=== PATIENT | male | born 1970 | race Caucasian/White ===

== ENCOUNTER 2024-08-08 08:57 | Emergency (ER) | payer OTHER, SELFPAY ==
[2024-08-08 09:09] VITALS: BP 156/80; PULSE 63; RESP 18; TEMP 36.8; O2SAT 98; BMI 25.1
--- NOTE | 2024-08-08 10:04 | XR_ITS ---
WS: [id number] Exam: XR finger LT min 2V 93832 Date/Time of Exam: 08/08/2024 10:06 AM Reason For Exam: injury index finger The index finger is targeted for radiographic evaluation. No acute fracture noted. Soft tissue injury involving the volar aspect of the distal index finger. No radiopaque foreign bodies are seen. Marked degenerative change at the wrist involving the articulati on of the scaphoid and greater and lesser multangular. XR/XR finger LT min 2V [id number] IMPRESSION: 1. Soft tissue injury to the distal index finger but no fracture or foreign bod y noted.
--- NOTE | 2024-08-08 10:33 | W.ED.UPPEXIN ---
HPI - Extremity Injury (Upper) General: Chief Complaint: Wound/Laceration Stated Complaint: Injured left index finger Time Seen by Provider: 08/08/24 09:31 Source: patient Mode of arrival: ambulatory Limitations: no limitations History of Present Illness: Patient is a nice 54-year-old male presents to ED today with a complaint of an injury to his left index finger that he sustained several hours ago after accidentally smashing it underneath a box. Last tetanus is up-to-date. He has no other injuries or complaints at this time. complaint: injury to: left and finger Onset (ago): hour(s) Other Extremity Injury: Left: fingers Other injuries: none Severity: mild Relieving factors: none Exacerbating factors: none Context: laceration and crush Associated symptoms: Reports no associated symptoms; Denies weakness in extremities Treatments prior to arrival: bandage Related Data Home Medications Medication Instructions Recorded Confirmed No Known Home Medications 08/08/24 08/08/24 Allergies Allergy/AdvReac Type Severity Reaction Status Date / Time No Known Allergies Allergy Verified 08/08/24 09:15 Review of Systems Musc: Reports: extremity pain (L index finger) Skin/Breast: Reports: other (laceration L index finger) Neuro: Denies: numbness in extremities, weakness in extremities or sensory changes Physical Exam Const: COMMON NORMALS: no acute distress, average body habitus, no limitations, healthy appearing, alert and well nourished Extremity: COMMON NORMALS: full ROM and capillary refill normal GENERAL: Yes normal exam except as noted LEFT UPPER EXTREMITY: Yes hand & digits (laceration palmar pad L index finger) Left hand and digits: Yes neurovascular exam (normal) Neuro: COMMON NORMALS: moves all extremities, no focal motor deficits and no sensory deficits noted SENSORIUM/ORIENTATION: Yes alert Skin: TRAUMA: laceration Procedures Laceration Laceration 1: Site: hand (L index finger) Side (If applicable): left Size (cm): 1.5 Description: irregular Depth: simple, single layer Local Anesthetic: lidocaine 1% (digital block) Amount of anesthesia used (mL): 3.0 Pre-repair: wound explored and irrigated extensively Skin layer closed with: nylon Size (cm): 5-0 Number of sutures: 6 Technique: simple, interrupted Course Vital Signs: Vital signs: Vital Signs Temperature 98.2 F 11/19/24 09:09 Pulse Rate 63 08/08/24 09:09 Respiratory Rate 18 08/08/24 09:09 Blood Pressure 156/80 08/08/24 09:09 Pulse Oximetry 98 08/08/24 09:09 Oxygen Delivery Me thod Room Air 08/08/24 09:09 MDM - Extremity Injury (Upper) Medical Decision Making XR negative for fracture. Wound was copiously irrigated and repaired as documented. Wound care/infection precautions discussed. Medical Records I reviewed the patient's medical records. Lab Data Radiology Impressions Finger X-Ray 08/08/24 10:04 IMPRESSION: 1. Soft tissue injury to the distal index finger but no fracture or foreign body noted. All radiology interpretation(s) finalized by discharge Discharge Plan Discharge Patient Disposition: Home Clinical Impression: Laceration of left index finger Qualifiers: Encounter type: initial encounter Damage to nail status: without damage Foreign body presence: without foreign body Qualified Code(s): S61.211A - Laceration without foreign body of left index finger without damage to nail, initial encounter Condition: Stable Prescriptions: No Action No Known Home Medications Discharge Orders: Discharge ED (Routine); Ordered 08/08/24 Ordered By: Leslie Lay Referrals: Vera Lau MD [Primary Care Provider] - Patient Instructions: Laceration (DC), Finger Laceration (ED) Activity Restrictions/Additional Instructions: Keep wound/laceration clean with warm soap and water twice daily. Monitor for signs of infection such as redness, swelling, increased pain, or drainage. Please seek medical re-evaluation if these occur. If you received sutures today these will need to be removed (unless you were told by the provider that they are absorbable). The provider should have discussed with you the length of time until removal-7 DAYS. Coding Level of Care Code ED Medical Record Consultant for Nandini Cervantes
[2024-08-08 11:50] VITALS: BP 146/101; PULSE 56; O2SAT 96
== END 2024-08-08 11:52 | disposition home or self-care (01) ==
PROVIDERS: Emergency Provider Physician Assistant; PCP Family Medicine
DX: S61.211A Laceration without foreign body of left index finger without damage to nail, initial encounter (principal); W23.0XXA Caught, crushed, jammed, or pinched between moving objects, initial encounter
CPT/HCPCS: 12001; 73140; 99283

== ENCOUNTER 2024-11-26 13:57 | Emergency (ER) | payer OTHER, SELFPAY ==
[2024-11-26 14:06] VITALS: BP 154/98; PULSE 78; RESP 16; TEMP 36.7; O2SAT 97; BMI 25.5
--- NOTE | 2024-11-26 15:04 | ED_ITS ---
HPI - Eye Problem General: Chief complaint: Eye Problems Stated complaint: injury to lft eye Time Seen by Provider: 11/26/24 14:24 History of Present Illness: This patient is a 54-year-old white male who accidentally struck his left eye with a branch while he was doing some yard work about 3 hours prior to arrival. He states it poked him in the left eye left upper corner. No visual changes. He feels like there might be a foreign body underneath the lid. Related Data Previous Rx's ?Medication ?Instructions ?Recorded tobramycin 0.3 % eye drops 1 drp ophthalmic (eye) Q4H #5 mL 11/26/24 Allergies Allergy/AdvReac Type Severity Reaction Status Date / Time No Known Allergies Allergy Verified 08/08/24 09:15 Review of Systems General: Reports: 10 or more systems reviewed and unremarkable except in HPI and below Eyes: Reports: eye discomfort Physical Exam Const: COMMON NORMALS: no acute distress, patient oriented x3 and no limitations GENERAL APPEARANCE: cooperative and comfortable HENMT: COMMON NORMALS: normocephalic, atraumatic, Normal nasal mucous membranes and turbinates present, moist oral mucous membranes and oropharynx normal HEAD & SCALP: normal to inspection, normocephalic and atraumatic FACE & SINUS: normal facial exam NOSE: Normal nasal mucous membranes and turbinates present Eye: COMMON NORMALS: Equal, round and reactive pupils present and EOMs intact bilaterally GENERAL EYE: appearance normal, both eyes and all related structures VISUAL ACUITY: Yes acuity normal EYELID: eyelids normal and other (No foreign body with eversion of the left upper lid) CONJUNCTIVA: Yes conjunctival abnormal (Some erythema of the conjunctive left upper quadrant of the left eye) CORNEA: Yes corneas normal PUPIL: Yes Equal, round and reactive pupils present Neck/C-Spine: COMMON NORMALS: supple and no JVD Chest: COMMONS NORMALS: normal inspection of the chest Resp: COMMON NORMALS: normal respiratory effort and clear to auscultation bilaterally AUSCULTATION: clear to auscultation bilaterally Cardio: COMMON NORMALS: no JVD, regular rate, regular rhythm, No gallops present (Cardio), No murmurs present (Cardio) and No rub (Cardio) RATE: regular rate RHYTHM: regular rhythm GI: COMMON NORMALS: Normal to inspection, nondistended, normoactive bowel sounds present, Soft to palpation and non-tender AUSCULTATION: Yes normoactive bowel sounds PALPATION: Yes Soft to palpation : COMMON NORMALS: Yes no CVA tenderness BLADDER/KIDNEY EXAM: Yes no CVA tenderness Back/Pelvis: COMMON NORMALS: no CVA tenderness and thoracic and lumbar spine normal to inspection Extremity: COMMON NORMALS: normal to inspection Neuro: COMMON NORMALS: patient oriented x3 and CN's II-XII intact bilaterally Psych: COMMON NORMALS: mental status grossly normal, Normal thought process present and cooperative THOUGHT PROCESS: Normal thought process present Skin: COMMON NORMALS: no rashes or lesions noted, turgor normal and no jaundice GENERAL SKIN EXAM: no rashes or lesions noted and turgor normal Course Vital Signs: Vital signs: Vital Signs Temperature 98.0 F 11/26/24 14:06 Pulse Rate 78 11/26/24 14:06 Respiratory Rate 16 11/26/24 14:06 Blood Pressure 154/98 11/26/24 14:06 Pulse Oximetry 97 11/26/24 14:06 Oxygen Delivery Me thod Room Air 11/26/24 14:06 MDM - Eye Problem Medical Decision Making No foreign bodies present. No corneal abrasion. It looks like he may have sustained an abrasion to the cornea in the left upper quadrant. I did place him on Tobrex drops. Recommended he follow-up with Dr. Samuels, log chipper operator in 3 days if no improvement. He was discharged in stable condition. No radiology studies performed this visit Discharge Plan Discharge Patient Disposition: Home Clinical Impression: Abrasion of conjunctiva, left Qualifiers: Encounter type: initial encounter Qualified Code(s): S05.02XA - Injury of conjunctiva and corneal abrasion without foreign body, left eye, initial encounter Condition: Stable Prescriptions: New tobramycin 0.3 % drops 1 drp ophthalmic (eye) Q4H Qty: 5 0RF Discharge Orders: Discharge ED (Routine); Ordered 11/26/24 Ordered By: Johnie Red Referrals: [facility] [Outside] - 1-3 days Vera Lau MD [Primary Care Provider] - Activity Restrictions/Additional Instructions: Schedule an appointment with Dr. Samuels, log chipper operator in 3 days if this is not resolved. Print Language: [place]ican Coding Level of Care Code ED Mattress Renovator for Nandini Cervantes
[2024-11-26] MEDS: tobramycin 0.3% Op Soln 5 mL Btl 2 DROP EYE-LEFT (15:35)
[2024-11-26 15:43] VITALS: BP 158/97; PULSE 65; O2SAT 98
== END 2024-11-26 15:44 | disposition home or self-care (01) ==
PROVIDERS: Emergency Provider Emergency Medicine; PCP Family Medicine
DX: S05.02XA Injury of conjunctiva and corneal abrasion without foreign body, left eye, initial encounter (principal); W22.8XXA Striking against or struck by other objects, initial encounter
CPT/HCPCS: 99283